=== PATIENT | female | born 1965 | race Two or more races ===

== ENCOUNTER 2023-12-17 20:03 | Inpatient (IN) | payer OTHER ==
[2023-12-17] MEDS: SODIUM CHLORIDE 1,000 ML IV SCH (20:57)
[2023-12-17 21:09] LABS: INR 1.25 (0.83-1.09)
[2023-12-17 21:22] LABS: POTASSIUM 3.9 mmol/L (3.5-5.1)
[2023-12-17 21:24] LABS: CALCIUM 9.6 mg/dL (8.5-10.1)
[2023-12-17 21:25] LABS: ALBUMIN 3.3 g/dl (3.4-5.0)
[2023-12-17 21:28] LABS: CREATININE 1.5 mg/dL (0.55-1.3)
[2023-12-17 21:29] LABS: TOT PROT 6.6 g/dl (6.4-8.2)
[2023-12-17 21:31] LABS: BILIRUBIN,TOTAL 0.3 mg/dL (0.2-1)
[2023-12-17 21:39] LABS: PH,URINE 5.5 (5.0-8.0); URINE APPEARANCE CLEAR; URINE BILIRUBIN NEGATIVE (NEGATIVE); URINE COLOR YELLOW; URINE GLUCOSE (UA) NEGATIVE (NEGATIVE); URINE KETONE NEGATIVE (NEGATIVE); URINE NITRITE NEGATIVE (NEGATIVE); URINE PROTEIN 100 (NEGATIVE); URINE UROBILINOGEN 0.2 mg/dL (0.2-1.0)
[2023-12-17 21:40] LABS: URINE LEUK ESTERASE NEGATIVE (NEGATIVE)
[2023-12-17 21:57] LABS: BASO % 0.6 % (0-2.0); EOS % 3.2 % (0-4.5); HEMATOCRIT 41.5 % (32.4-45.2); HEMOGLOBIN 14.6 GM/dL (10.7-15.3); LYMPH % 42.5 % (8-40); MCH 29.7 pg (25.7-33.7); MCHC 35.3 g/dl (32.0-36.0); MEAN CELL VOLUME 84.4 fl (80-96); MEAN PLT VOLUME 9.9 fl (7.5-11.1); MONO % 5.6 % (3.8-10.2); NEUT % 48.1 % (42.8-82.8); PLATELET COUNT 183 10^3/uL (134-434); RBC 4.92 M/mm3 (3.60-5.2); RDW 15.5 % (11.6-15.6)
[2023-12-17 22:16] LABS: CALCIUM 9.5 mg/dL (8.5-10.1)
[2023-12-17 22:17] LABS: BLOOD UREA NITROGEN 30.4 mg/dL (7-18)
[2023-12-17 22:20] LABS: CREATININE 1.4 mg/dL (0.55-1.3)
[2023-12-17] MEDS ORDERED: ATORVASTATIN CA 40 MG TABLET (FP) ONE (23:43)
[2023-12-17] MEDS ORDERED: ASPIRIN 325 MG ENTERIC COATED TABLET (FP) ONE (23:43)
[2023-12-17] MEDS: ATORVASTATIN CA 80 MG TABLET (FP) PO SCH (23:50)
[2023-12-18] MEDS ORDERED: MELATONIN 5 MG TABLETS ONE (01:15)
[2023-12-18] MEDS: MELATONIN 5 MG TABLETS PO PRN (01:27)
[2023-12-18 06:32] LABS: BASO % 0.4 % (0-2.0); EOS % 3.8 % (0-4.5); HEMATOCRIT 38.9 % (32.4-45.2); HEMOGLOBIN 13.5 GM/dL (10.7-15.3); LYMPH % 45.9 % (8-40); MCH 29.5 pg (25.7-33.7); MCHC 34.6 g/dl (32.0-36.0); MEAN CELL VOLUME 85.1 fl (80-96); MEAN PLT VOLUME 9.6 fl (7.5-11.1); NEUT % 43.9 % (42.8-82.8); PLATELET COUNT 174 10^3/uL (134-434); RBC 4.57 M/mm3 (3.60-5.2); RDW 15.4 % (11.6-15.6); WHITE BLOOD COUNT 10.6 K/mm3 (4.0-10.0)
[2023-12-18 06:48] LABS: POTASSIUM 3.6 mmol/L (3.5-5.1)
[2023-12-18 06:50] LABS: CALCIUM 9.5 mg/dL (8.5-10.1)
[2023-12-18 06:51] LABS: ALBUMIN 3.2 g/dl (3.4-5.0); MAGNESIUM 1.3 mg/dL (1.8-2.4)
[2023-12-18 06:54] LABS: CREATININE 1.2 mg/dL (0.55-1.3); PHOSPHOROUS 4.1 mg/dL (2.5-4.9)
[2023-12-18 06:55] LABS: TOT PROT 6.6 g/dl (6.4-8.2)
[2023-12-18 06:56] LABS: BILIRUBIN,TOTAL 0.3 mg/dL (0.2-1)
[2023-12-18] MEDS: ASPIRIN 325 MG ENTERIC COATED TABLET (FP) PO ONE (06:56)
[2023-12-18] MEDS: INSULIN ASPART SLIDING SCALE (NOVOLOG) 1 VIAL SQ SCH (07:10)
[2023-12-18] MEDS: ENOXAPARIN NA (PORCINE) 40 MG/0.4 ML DISP.SYRIN SQ SCH (11:52)
[2023-12-18] MEDS: ASPIRIN COATED 81 MG TABLET.EC PO SCH (11:52)
[2023-12-18] MEDS ORDERED: LABETALOL HCL 5 MG/1 ML (100MG/20 ML VIAL) IVPUSH ONE ×2 (22:20)
[2023-12-18] MEDS: LABETALOL HCL 20 MG/4 ML VIAL IVPUSH ONE (22:46)
[2023-12-19] MEDS: LABETALOL HCL 20 MG/4 ML VIAL IVPUSH ONE ×2 (10:10→20:53)
[2023-12-19] MEDS: MAGNESIUM 2GM/50ML STERILE WATER IVPB IVPB SCH (10:10)
[2023-12-19] MEDS: LABETALOL HCL 200 MG TABLET (FP) PO SCH ×2 (10:19→11:50)
[2023-12-19 13:21] LABS: HEMOGLOBIN 14.8 GM/dL (10.7-15.3); MCH 29.5 pg (25.7-33.7); MCHC 34.4 g/dl (32.0-36.0); MEAN CELL VOLUME 85.8 fl (80-96); MEAN PLT VOLUME 10.3 fl (7.5-11.1); PLATELET COUNT 176 10^3/uL (134-434); RBC 5.01 M/mm3 (3.60-5.2); RDW 15.7 % (11.6-15.6); WHITE BLOOD COUNT 10.3 K/mm3 (4.0-10.0)
[2023-12-19 13:44] LABS: ALBUMIN 3.7 g/dl (3.4-5.0); BLOOD UREA NITROGEN 20.9 mg/dL (7-18); MAGNESIUM 2.7 mg/dL (1.8-2.4)
[2023-12-19 13:47] LABS: BILIRUBIN,TOTAL 0.6 mg/dL (0.2-1); TOT PROT 7.6 g/dl (6.4-8.2)
[2023-12-19] MEDS: ONDANSETRON 4 MG/2 ML VIAL IVPUSH PRN (16:02)
[2023-12-19] MEDS: hydrALAZINE HCL 20 MG/ML VIAL IVPUSH PRN (16:02)
[2023-12-19] MEDS: levETIRAcetam 500 MG/5 ML INJECTION VIAL IVPB ONE (18:07)
[2023-12-19 21:12] LABS: POTASSIUM 3.8 mmol/L (3.5-5.1)
[2023-12-19 21:15] LABS: BLOOD UREA NITROGEN 23.9 mg/dL (7-18); CALCIUM 9.7 mg/dL (8.5-10.1)
[2023-12-19 21:16] LABS: ALBUMIN 3.7 g/dl (3.4-5.0)
[2023-12-19 21:19] LABS: BILIRUBIN,TOTAL 0.4 mg/dL (0.2-1); TOT PROT 7.6 g/dl (6.4-8.2)
[2023-12-19] MEDS: LABETALOL HCL 100 MG TABLET (FP) PO SCH (22:10)
[2023-12-20 07:07] LABS: HEMATOCRIT 39.2 % (32.4-45.2); HEMOGLOBIN 13.6 GM/dL (10.7-15.3); MCH 29.4 pg (25.7-33.7); MCHC 34.7 g/dl (32.0-36.0); MEAN CELL VOLUME 84.6 fl (80-96); MEAN PLT VOLUME 9.9 fl (7.5-11.1); PLATELET COUNT 176 10^3/uL (134-434); RBC 4.63 M/mm3 (3.60-5.2); RDW 16.1 % (11.6-15.6)
[2023-12-20 07:28] LABS: POTASSIUM 3.8 mmol/L (3.5-5.1)
[2023-12-20 07:34] LABS: ALBUMIN 3.5 g/dl (3.4-5.0); BLOOD UREA NITROGEN 31.2 mg/dL (7-18); CALCIUM 9.4 mg/dL (8.5-10.1); MAGNESIUM 2.3 mg/dL (1.8-2.4)
[2023-12-20 07:37] LABS: CREATININE 1.7 mg/dL (0.55-1.3); PHOSPHOROUS 5.5 mg/dL (2.5-4.9)
[2023-12-20 07:39] LABS: BILIRUBIN,TOTAL 0.6 mg/dL (0.2-1); TOT PROT 6.9 g/dl (6.4-8.2)
[2023-12-20] MEDS: LISINOPRIL 5 MG TABLET PO SCH (09:45)
[2023-12-20] MEDS: INSULIN (LEVEMIR) 100 UNITS/ML UNITS SQ SCH ×2 (09:45→21:54)
[2023-12-20] MEDS ORDERED: INSULIN (LEVEMIR) 100 UNITS/ML UNITS SQ ONE (09:51)
[2023-12-20] MEDS: INSULIN ASPART SLIDING SCALE (NOVOLOG) 1 VIAL SQ SCH (12:22)
[2023-12-20 18:13] VITALS: BMI 21.3
[2023-12-20] MEDS ORDERED: INSULIN ASPART SLIDING SCALE (NOVOLOG) 1 VIAL SQ ONE (18:51)
[2023-12-20] MEDS ORDERED: diphenhydrAMINE HCL 25 MG CAPSULE (FP) PO ONE (22:16)
[2023-12-20] MEDS: HALOPERIDOL LACTATE 5 MG/ML IM ONE (22:25)
[2023-12-21 07:59] LABS: HEMATOCRIT 39.9 % (32.4-45.2); HEMOGLOBIN 13.7 GM/dL (10.7-15.3); MCHC 34.2 g/dl (32.0-36.0); MEAN CELL VOLUME 84.7 fl (80-96); MEAN PLT VOLUME 9.9 fl (7.5-11.1); PLATELET COUNT 167 10^3/uL (134-434); RBC 4.72 M/mm3 (3.60-5.2); RDW 15.5 % (11.6-15.6); WHITE BLOOD COUNT 13.6 K/mm3 (4.0-10.0)
[2023-12-21 08:17] LABS: POTASSIUM 3.6 mmol/L (3.5-5.1)
[2023-12-21 08:20] LABS: ALBUMIN 3.6 g/dl (3.4-5.0); BLOOD UREA NITROGEN 49.3 mg/dL (7-18); MAGNESIUM 2.3 mg/dL (1.8-2.4)
[2023-12-21 08:23] LABS: CREATININE 1.9 mg/dL (0.55-1.3); PHOSPHOROUS 5.1 mg/dL (2.5-4.9)
[2023-12-21 08:25] LABS: BILIRUBIN,TOTAL 0.5 mg/dL (0.2-1)
[2023-12-21] MEDS: HEPARIN NA (PORCINE) 5,000 UNITS/ML 1ML VIAL SQ SCH (14:23)
[2023-12-21] MEDS: SODIUM CHLORIDE 1,000 ML IV SCH (14:24)
[2023-12-21] MEDS ORDERED: INSULIN (LEVEMIR) 100 UNITS/ML UNITS SQ ONE (17:57)
[2023-12-21] MEDS ORDERED: INSULIN ASPART SLIDING SCALE (NOVOLOG) 1 VIAL SQ ONE (17:57)
[2023-12-21] MEDS: MELATONIN 1 MG TABLET PO ONE (21:02)
[2023-12-22 07:30] LABS: BASO % 0.6 % (0-2.0); EOS % 1.8 % (0-4.5); HEMOGLOBIN 12.2 GM/dL (10.7-15.3); LYMPH % 31.2 % (8-40); MCH 28.8 pg (25.7-33.7); MCHC 33.8 g/dl (32.0-36.0); MEAN CELL VOLUME 85.1 fl (80-96); MEAN PLT VOLUME 10.3 fl (7.5-11.1); MONO % 6.8 % (3.8-10.2); NEUT % 59.6 % (42.8-82.8); PLATELET COUNT 150 10^3/uL (134-434); RBC 4.23 M/mm3 (3.60-5.2); RDW 15.6 % (11.6-15.6); WHITE BLOOD COUNT 12.8 K/mm3 (4.0-10.0)
[2023-12-22 07:50] LABS: POTASSIUM 3.6 mmol/L (3.5-5.1)
[2023-12-22 07:57] LABS: CALCIUM 8.8 mg/dL (8.5-10.1)
[2023-12-22 07:58] LABS: BLOOD UREA NITROGEN 43.8 mg/dL (7-18)
[2023-12-22 08:01] LABS: CREATININE 1.3 mg/dL (0.55-1.3); PHOSPHOROUS 3.5 mg/dL (2.5-4.9)
[2023-12-22 08:23] VITALS: BP 104/60; PULSE 70; RESP 14; TEMP 98.4
== END 2023-12-22 18:28 | disposition home or self-care (01) | DRG 199 ==
LOC: JER 20:03 → JERBED 22:49 → J4W 12-18 08:34
PROVIDERS: ADMIT Internal Medicine; ATTEND Internal Medicine
DX: I16.1 Hypertensive emergency (principal); N17.9 Acute kidney failure, unspecified; E78.5 Hyperlipidemia, unspecified; R47.81 Slurred speech; I10 Essential (primary) hypertension; E11.65 Type 2 diabetes mellitus with hyperglycemia; E11.51 Type 2 diabetes mellitus with diabetic peripheral angiopathy without gangrene; G30.9 Alzheimer's disease, unspecified; F02.80 Dementia in other diseases classified elsewhere, unspecified severity, without behavioral disturbance, psychotic disturbance, mood disturbance, and anxiety; E78.1 Pure hyperglyceridemia; R33.9 Retention of urine, unspecified; R41.0 Disorientation, unspecified; R29.810 Facial weakness
CPT/HCPCS: 36415; 70450-TC; 70496-TC; 70498-TC; 70551-TC; 71045-TC-FY; 80048; 80053; 80061; 81003; 82550; 82570; 82962; 83036; 83605; 83735; 84100; 84146; 84300; 84439; 84443; 84484; 85025; 85027; 85610; 85730; 86850; 86900; 86901; 87040; 93005; 93010; 93306-TC; 97116-GP; 97161-GP; 99285-25; J1644; Q9967